=== PATIENT | female | born 1980 | race Caucasian/White ===

== ENCOUNTER 2017-04-10 20:09 | Inpatient (IN) | payer OTHER ==
[~2017-04-10] VITALS: Ht 170.2 cm; Wt 103.1 kg
[~2017-04-10 20:09] MED LIST: BENTYL10 MG PO; BUSPAR5 MG PO; CALCIUM 500 +1 EACH PO; CARVEDILOL6.25 MG PO; CHOLESTYRAMINE P4 GM PO; DAILY VALUE1 EACH PO; EFFEXOR75 MG PO; FEXOFENADINE H180 MG PO; GLUCOPHAGE500 MG PO; METRONIDAZOLE500 MG PO; NAPROXEN500 MG PO; NORCO 5/3251 TABLET PO; ONDANSETRON ODT4 MG PO; PANTOPRAZOLE SO40 MG PO; PENTASA500 MG PO; PROBIOTIC1 EAC1 PO; PROMETHAZINE HC25 M1 PO; PROTONIX40 MG PO; RANITIDINE HCL150 MG PO; SINGULAIR10 MG PO; ST. JOSEPH ASPI81 MG PO; VIIBRYD40 MG PO; VITAMIN D32000 UNI1 PO; WELLBUTRIN75 MG PO; ZOFRAN ODT4 MG PO; [UNRECOGNIZED DRUG - OTHER] PO
[2017-04-10 21:25] LABS: ADD MIUA? NO; BILIRUBIN NEGATIVE; BLOOD NEGATIVE; COLOR YELLOW ((YELLOW)); GLUCOSE (STRIP) NEGATIVE; KETONES NEGATIVE; LEUKOCYTES NEGATIVE; NITRITE NEGATIVE; PROTEIN (STRIP) NEGATIVE; SPECIFIC GRAVITY 1.011 (1.000-1.030); UCUL ADDED? NO; UROBILINOGEN 0.2 MG/DL (0.2-1.0)
[2017-04-10 21:33] LABS: INTERNAL CONTROL VALID? YES
[2017-04-10 21:33] LABS: EOSINOPHIL (%) 0.6 % (0-5); EOSINOPHIL COUNT 0.1 K/uL (0-0.3); HEMATOCRIT 33.6 % (36.0-46.0); IMMATURE GRANULOCYTE (%) 0.5 % (0.0-0.7); IMMATURE GRANULOCYTE COUNT 0.1 K/uL; LYMPHOCYTE COUNT 2.9 K/uL (1.0-2.8); MCH 28.4 PG (29.0-34.0); MCHC 33.3 G/DL (30.0-36.0); MCV 85.1 FL (83-99); MEAN PLAT.VOLUME 9.1 uM^3 (9.5-12.4); MONOCYTE (%) 6.4 % (3-12); MONOCYTE COUNT 0.9 K/uL (0-0.8); NEUTROPHIL (%) 71.4 % (45-76); PLATELET COUNT 358 K/uL (156-360); RBC DIS.WIDTH-CV 12.6 % (11.8-14.6); RBC DIS.WIDTH-SD 38.5 % (39-53); RED BLOOD COUNT 3.95 M/uL (3.80-5.20)
[2017-04-10 21:56] LABS: CHLORIDE 106 mEq/L (99-109); POTASSIUM 3.6 mEq/L (3.7-5.4); SODIUM 138 mEq/L (136-147)
[2017-04-10 21:58] LABS: GLUCOSE 153 mg/dL (70-99)
[2017-04-10 21:59] LABS: ANION GAP 9 MEQ/L (2-14)
[2017-04-10 22:02] LABS: GFR ESTIMATE (CALCULATED) > 59 mL/min/; UREA NITROGEN (BUN) 9 mg/dL (9-23)
[2017-04-11] MEDS ORDERED: AZELASTINE205.5 MCG/ BOTH NARES (01:15)
[2017-04-11] MEDS ORDERED: IPRATROPIUM BRO15 ML BOTH NARES (01:16)
[2017-04-11] MEDS ORDERED: steroid cream BOTH EARS (01:18)
[2017-04-11] MEDS ORDERED: WELLBUTRIN XL300 MG PO (01:19)
[2017-04-11] MEDS ORDERED: NIKKI 3 MG-0.01 EACH PO (01:21)
[2017-04-11 03:44] LABS: TROP-I INTERPRETATION NEGATIVE; TROPONIN-I < 0.01 ng/mL (0.0-0.30)
[2017-04-11 05:22] LABS: D-DIMER ELISA 0.47 mg/L FEU (< 0.57)
[2017-04-11 05:32] VITALS: BP 131/74
[2017-04-11 07:25] VITALS: BP 124/57
[2017-04-11 10:12] LABS: INTERNAL CONTROL VALID? YES
[2017-04-11 11:20] VITALS: BP 121/69
[2017-04-11 16:03] VITALS: BP 127/74
[2017-04-11 19:34] VITALS: BP 119/65
[2017-04-11 22:30] LABS: C DIFF TOXIN NEGATIVE (NEGATIVE)
[2017-04-11 22:31] LABS: PROBE CHECK PASS; SPECIMEN PROCESSING CONTROL PASS
[2017-04-11 23:33] VITALS: BP 115/70
[2017-04-12 03:33] VITALS: BP 111/61
[2017-04-12 06:36] LABS: ANION GAP 9 MEQ/L (2-14); CHLORIDE 109 MEQ/L (99-109); GFR ESTIMATE (CALCULATED) > 59 mL/min/; SAMPLE HEMOLYSIS CHECK 0; SAMPLE ICTERIC CHECK 0; SAMPLE LIPEMIA CHECK 0; SODIUM 140 MEQ/L (136-147); UREA NITROGEN (BUN) 8 mg/dL (9-23)
[2017-04-12 06:37] LABS: GLUCOSE 93 mg/dL (70-99)
[2017-04-12 06:50] LABS: EOSINOPHIL (%) 0.3 % (0-5); HEMATOCRIT 28.4 % (36.0-46.0); IMMATURE GRANULOCYTE (%) 0.6 % (0.0-0.7); IMMATURE GRANULOCYTE COUNT 0.1 K/uL; INSTRUMENT ABS NEUTROPHIL CT 8.3 K/uL; LYMPHOCYTE COUNT 2.4 K/uL (1.0-2.8); MCH 28.4 PG (29.0-34.0); MCV 88.8 FL (83-99); MEAN PLAT.VOLUME 8.9 uM^3 (9.5-12.4); MONOCYTE (%) 8.6 % (3-12); NEUTROPHIL (%) 70.1 % (45-76); NEUTROPHIL COUNT 8.3 K/uL (1.8-6.4); PLATELET COUNT 323 K/uL (156-360); RBC DIS.WIDTH-SD 42.3 % (39-53); WHITE BLOOD COUNT 11.8 K/uL (4.1-10.2)
[2017-04-12 07:20] VITALS: BP 119/70
[2017-04-12 11:42] VITALS: BP 124/72
[2017-04-12 15:15] VITALS: BP 103/59
[2017-04-12 23:36] VITALS: BP 99/55
[2017-04-13 08:12] VITALS: BP 115/72
[2017-04-13 09:35] VITALS: BP 115/72
[2017-04-13] MEDS ORDERED: ADVAIR HFA120 INHALA IH (11:52)
[2017-04-13] MEDS ORDERED: AUGMENTIN875 MG PO (11:52)
[2017-04-13] MEDS ORDERED: Robitussin AC,Tussi- PO (11:52)
== END 2017-04-13 16:26 | disposition home or self-care (01) | DRG 194 ==
LOC: EME 20:09 → EDOF 04-11 01:47 → 2EASTP 04-11 03:27 → EDOF 04-11 03:27 → 2EASTP 04-11 05:05
PROVIDERS: Emergency Medicine; Hospitalist; Internal Medicine
DX: J15.4 Pneumonia due to other streptococci (principal); I95.9 Hypotension, unspecified; R09.1 Pleurisy; I42.9 Cardiomyopathy, unspecified; I48.92 Unspecified atrial flutter; J45.909 Unspecified asthma, uncomplicated; K21.9 Gastro-esophageal reflux disease without esophagitis; E28.2 Polycystic ovarian syndrome; R32 Unspecified urinary incontinence; D64.9 Anemia, unspecified; R35.8 Other polyuria; R51 Headache; E66.9 Obesity, unspecified; Z68.35 Body mass index [BMI] 35.0-35.9, adult; Z86.19 Personal history of other infectious and parasitic diseases; Z79.82 Long term (current) use of aspirin
CPT/HCPCS: 71020; 71275; 74176; 78582; 80048; 81003; 83605; 84484; 84703; 85025; 85379; 87040; 87070; 87205; 87449; 87493; 87506; 93005; 93970; 94640; 94640 76; 94760; 94799; 99202; 99281; 99285; A9540; A9567; J0456; J0696; J1170; J1200; J1650; J1885; J2270; J2405; J2543; J2930; J3370; J7030; J7050; S0028

== ENCOUNTER 2018-01-03 16:07 | Emergency (ER) | payer OTHER ==
[~2018-01-03 16:07] MED LIST changes: +ADVAIR HFA120 INHALA IH; +AUGMENTIN875 MG PO; +AZELASTINE205.5 MCG/ BOTH NARES; +IPRATROPIUM BRO15 ML BOTH NARES; +NIKKI 3 MG-0.01 EACH PO; +Robitussin AC,Tussi- PO; +WELLBUTRIN XL300 MG PO; +steroid cream BOTH EARS
[2018-01-03] MEDS ORDERED: ERYTHROMYC1 APPLICAT BOTH EYES (16:59)
[2018-01-03 17:10] VITALS: BP 00/00
== END 2018-01-03 17:12 | disposition home or self-care (01) ==
LOC: EME 16:07
DX: S05.01XA Injury of conjunctiva and corneal abrasion without foreign body, right eye, initial encounter (principal); S05.02XA Injury of conjunctiva and corneal abrasion without foreign body, left eye, initial encounter; T15.12XA Foreign body in conjunctival sac, left eye, initial encounter; T15.11XA Foreign body in conjunctival sac, right eye, initial encounter; W25.XXXA Contact with sharp glass, initial encounter; Y99.0 Civilian activity done for income or pay; Z88.2 Allergy status to sulfonamides; Z88.1 Allergy status to other antibiotic agents; Z88.8 Allergy status to other drugs, medicaments and biological substances
CPT/HCPCS: 99281; 99283